=== PATIENT | male | born 1975 | race Caucasian/White ===

== ENCOUNTER 2022-06-03 14:11 | Observation (INO) ==
[2022-06-03 14:44] LABS: Basophils # (auto) 0.05 K/uL (0-0.2); Basophils % (auto) 0.4 %; Hematocrit (blood only) 47.1 % (40.1-51.0); Hemoglobin 16.6 g/dl (14.0-18.0); Immature Granulocytes # (auto) 0.04 K/uL (0.00-0.02); Immature Granulocytes % (auto) 0.3 %; Lymphocytes # (auto) 1.09 K/uL (1.2-3.4); Lymphocytes % (auto) 9.4 %; Mean Corpuscular Hemoglobin 29.6 pg (25.0-34.0); Mean Corpuscular Hgb Conc 35.2 g/dL (32.0-36.0); Mean Platelet Volume 9.7 fL (9.4-12.4); Monocytes # (auto) 0.49 K/uL (0.24-0.82); Monocytes % (auto) 4.2 %; Neutrophils # (auto) 9.96 K/uL (1.4-6.5); Neutrophils % (auto) 85.7 %; Platelet Count 263 K/uL (130-400); RDW Coefficient of Variation 12.5 % (11.5-14.5); RDW Standard Deviation 37.4 fL (36.4-46.3); Red Blood Count 5.61 M/uL (4.63-6.08); White Blood Count 11.63 K/ul (4.8-10.8)
[2022-06-03] MEDS ORDERED: LORazepam 1 MG/1 ML SYR IV STA (14:45)
[2022-06-03] MEDS ORDERED: ASPIRIN CHEW 324 MG PO STA (14:45)
--- NOTE | 2022-06-03 14:50 | XRay Report ---
TWO VIEW CHEST CLINICAL HISTORY: Atypical chest pain. Anxiety. FINDINGS: PA and lateral chest radiographs are obtained. No prior studies are available for compariso n at the time of dictation. The cardiomediastinal silhouette is unremarkable. The lungs and pleural spaces are clear. There is no pneumothorax. The bony thorax appears intact. IMPRESSION: No active disease in the chest. ACT 112: Negative or not required by law. Electronically signed by: Rubén Stein M.D. 06/03/2022 2:49 PM
--- NOTE | 2022-06-03 15:01 | Emergency Department Note ---
Impression & Plan Chest pain, Abnormal EKG ED Provider Note NAME: RENÉE FLORES AGE: 47 SEX: M : 1975 ARRIVES VIA: Walk-In INFORMANT: Patient, ED PROVIDER(S): Leonides Uriostegui DO CHIEF COMPLAINT: Chest pain HPI: The patient is a 47-year-old male who presented to the emergency department for an evaluation of discomfort in his chest. The patient states he has been having symptoms over the course the last few weeks but they have become worse over the last few days. He states he is getting pain in between his shoulder blades. He also notices discomfort in his chest. He becomes very anxious about this and thinks that he is suffering a heart attack. The patient currently does not have a family doctor. He went to [facility] initially. They wanted to do an EKG however the patient decided since they were going to send him to the emergency department he deferred all testing until he got here. He states he has no shortness of breath or leg swelling at this time but does complain of pain that he is experiencing between his shoulder blades and sometimes into his chest. He describes it as a pressure. He states symptoms are not worsen with anxiety. He has seen a chiropractor because he thought initially this could be musculoskeletal in nature but after his most recent trip to the chiropractor he did have some relief and the pain eventually did come back. The patient states that he is going to be traveling in the near future and was looking for medical clearance prior to leaving on a trip. ROS: See above HPI for pertinent positives & negatives. A total of 10 systems reviewed and were otherwise negative. PAST MEDICAL HISTORY: See Below PAST SURGICAL HISTORY: See Below FAMILY HISTORY: See Below SOCIAL HISTORY: See Below HOME MEDICATIONS: See Below ALLERGIES: See Below VITALS: See Below PHYSICAL EXAMINATION: GENERAL: The patient is awake and alert. He is somewhat anxious appearing. EYES: The conjunctivae are clear. The pupils are round and reactive. EARS, NOSE, MOUTH AND THROAT: The nose is without any evidence of any deformity. NECK: The neck is nontender and supple. RESPIRATORY: Normal respiratory effort is noted there is no evidence of wheezing rhonchi or rales CARDIOVASCULAR: Regular rate and rhythm noted there no murmurs rubs or gallops normal S1 normal S2. GASTROINTESTINAL: The abdomen is soft. Abdomen is nontender. BACK: No midline tenderness or or step-off noted range of motion in flexion extension as well as rotation no signs of muscle spasm noted MUSCULOSKELETAL/EXTREMITIES: There is no evidence of gross deformity full range of motion is noted in the hips and shoulders. SKIN: There is no obvious evidence of any rash. There are no petechiae, pallor or cyanosis noted. NEUROLOGIC: Patient is awake alert and oriented x3 MEDICAL DECISION MAKING: The patient is a 47-year-old male who presented to the emergency department for an evaluation of chest pain. The patient initially described pain was musculosk eletal in nature and seem to be in his back. He started noticing some discomfort in his chest and became very concerned that this was cardiac chest pain. The patient does not have a family doctor. He has not been seen previously for this pain. He denies having any difficulty breathing. The trent ent's initial presenting EKG in triage appeared to be consistent with inferior ischemia. The patient's cardiac biomarker was negative x2. I discussed the patient's laboratory and radiographic studies with him. Ultimately given his findings I [facility] have agreed to evaluate the patient in the emergency department for further management and disposition. Triage Nursing notes reviewed. Prior medical records reviewed Vital Signs: reviewed and remarkable for elevated blood pressure. Differential diagnosis: Cardiac ischemia, aortic dissection, pulmonary embolism, pneumothorax, pneumonia, pericarditis, myocarditis, esophageal rupture, GERD, cholecystitis, pancreatitis, musculoskeletal, as well as other pathologies. ER treatment provided: See below Diagnostics interpreted by me: ECG: EKG was obtained in the emergency department. My interpretation is sinus tachycardia [address] segment depressions noted in the inferior leads. Nonspecific ST segment abnormalities were also noted in the low lateral leads. No previous tracing was available. A second EKG was obtained in the emergency department. My interpretation is sinus rhythm at 90 bpm. There was no ectopy. Continued ST segment ab normalities were noted in the inferior and low lateral leads. There was no change compared to the earlier tracing. Cardiac Monitoring: An order was placed for continuous cardiac monitoring. The monitor shows a rate of 82 bpm with sinus rhythm. Laboratory studies: As stated above and show below. Imaging studies: See below Consultation(s): I discussed this case with Dr Ng who [facility] Past Med/Surg History Medical History Anxiety Social History Smoking Status: Former smoker Preferred Language: Pashto Feels Safe at Home: Yes Allergies Allergies Allergy/AdvReac Type Severity Reaction Status Date / Time pollen extracts Allergy Intermediate HAYFEVER Verified 06/03/22 15:35 SYMPTOMS amoxicillin Allergy Unknown HAPPENED Verified 06/03/22 15:35 A CHILD Home Meds Home Medications Medication Instructions Recorded Confirmed calcium carbonate 200 mg calcium 400 mg PO DIRECTED PRN 06/03/22 06/03/22 (500 mg) chewable tablet (Tums) INDIGESTION/HEARTBURN escitalopram oxalate 10 mg tablet 10 mg PO DAILY 06/03/22 06/03/22 ibuprofen 200 mg tablet 400 - 600 mg PO DIRECTED PRN 06/03/22 06/03/22 Pain Results & Data (ED) Vital Signs Vital Signs - 24 hr 06/03/22 14:15 06/03/22 15:08 06/03/22 15:08 Temperature 36.8 C Temperature Source Temporal Artery Scan Pulse Rate 101 H Pulse Rate [Apical] 94 H Pulse Rhythm [Apical] Pulse Strength [Apical] Respiratory Rate 18 14 Respiratory Effort / Characteristics Non-Labored Respiratory Depth Normal Respiratory Pattern Regular Blood Pressure 190/119 H Blood Pressure [Right Arm] 171/115 H Blood Pressure Mean 142 Blood Pressure Mean [Right Arm] 133 Blood Pressure Position [Right Arm] Pulse Oximetry 98 98 Oxygen Delivery Method Room Air Room Air Room Air Sepsis Recent Fever Within 48 Hours No Sepsis New/Unexplained Change in Mental Status No Sepsis Action Taken by Nursing No Action Required 06/03/22 16:41 06/03/22 17:29 Temperature Temperature Source Pulse Rate Pulse Rate [Apical] 97 H 92 H Pulse Rhythm [Apical] Regular Regular Pulse Strength [Apical] Normal Normal Respiratory Rate 16 16 Respiratory Effort / Characteristics Non-Labored Spontaneous Respiratory Depth Normal Respiratory Pattern Blood Pressure Blood Pressure [Right Arm] 161/108 H 161/107 H Blood Pressure Mean Blood Pressure Mean [Right Arm] 125 125 Blood Pressure Position [Right Arm] Lying Pulse Oximetry 98 99 Oxygen Delivery Method Room Air Room Air Sepsis Recent Fever Within 48 Hours Sepsis New/Unexplained Change in Mental Status Sepsis Action Taken by Snf Medications Current Medication List: was personally reviewed by me Laboratory Data Attestation: I reviewed the patient's lab results. Result diagrams: 06/03/22 14:30 06/03/22 14:30 Lab Results 06/03/22 06/03/22 06/03/22 Range/Units 14:30 14:30 14:30 WBC 11.63 H (4.8-10.8) K/ul RBC 5.61 (4.63-6.08) M/uL Hgb 16.6 (14.0-18.0) g/dl Hct 47.1 (40.1-51.0) % MCV 84.0 (80.0-100.0) fL MCH 29.6 (25.0-34.0) pg MCHC 35.2 (32.0-36.0) g/dL RDW Std Deviation 37.4 (36.4-46.3) fL RDW Coeff of Anastasiia 12.5 (11.5-14.5) % Plt Count 263 (130-400) K/uL MPV 9.7 (9.4-12.4) fL Immature Gran % (Auto) 0.3 % Neut % (Auto) 85.7 % Lymph % (Auto) 9.4 % [place] % (Auto) 4.2 % Eos % (Auto) 0.0 % Baso % (Auto) 0.4 % Neut # (Auto) 9.96 H (1.4-6.5) K/uL Lymph # (Auto) 1.09 L (1.2-3.4) K/uL [place] # (Auto) 0.49 (0.24-0.82) K/uL Eos # (Auto) 0.00 (0-0.50) K/uL Baso # (Auto) 0.05 (0-0.2) K/uL Immature Gran # (Auto) 0.04 H (0.00-0.02) K/uL PT 11.0 (9.0-12.0) Seconds INR 1.0 (0.9-1.1) APTT 27.0 (21.0-31.0) Seconds PTT Ratio 1.0 D-Dimer (0-500) ug/L FEU Sodium 136 (136-145) mmol/L Potassium 3.3 L (3.5-5.1) mmol/L Chloride 103 (98-107) mmol/L Carbon Dioxide 23 (21-32) mmol/L Anion Gap 10 (3-11) BUN 11 (6-23) mg/dl Creatinine 0.81 (0.6-1.4) mg/dl Est Cr Clr Drug Dosing 131.9 ml/min Est GFR ( Amer) 123.5 ml/min Est GFR (Non-Af Amer) 106.6 ml/min BUN/Creatinine Ratio 13.6 (10-20) Glucose 123 H (70-99(Fasting)) mg/dl Calcium 9.4 (8.5-10.1) mg/dl Total Bilirubin 0.8 (0.2-1.0) mg/dl AST 17 (13-39) U/L ALT 23 (7-52) U/L Alkaline Phosphatase 52 (34-104) U/L Troponin I High Sens 4.1 (0-20) pg/ml Total Protein 7.5 (6.0-8.3) gm/dl Albumin 4.7 (3.4-5.0) gm/dl Globulin 2.8 (2.5-4.0) gm/dl Albumin/Globulin Ratio 1.7 (0.9-2) Lipase 5 L (11-82) U/L 06/03/22 06/03/22 Range/Units 14:30 16:37 WBC (4.8-10.8) K/ul RBC (4.63-6.08) M/uL Hgb (14.0-18.0) g/dl Hct (40.1-51.0) % MCV (80.0-100.0) fL MCH (25.0-34.0) pg MCHC (32.0-36.0) g/dL RDW Std Deviation (36.4-46.3) fL RDW Coeff of Anastasiia (11.5-14.5) % Plt Count (130-400) K/uL MPV (9.4-12.4) fL Immature Gran % (Auto) % Neut % (Auto) % Lymph % (Auto) % [place] % (Auto) % Eos % (Auto) % Baso % (Auto) % Neut # (Auto) (1.4-6.5) K/uL Lymph # (Auto) (1.2-3.4) K/uL [place] # (Auto) (0.24-0.82) K/uL Eos # (Auto) (0-0.50) K/uL Baso # (Auto) (0-0.2) K/uL Immature Gran # (Auto) (0.00-0.02) K/uL PT (9.0-12.0) Seconds INR (0.9-1.1) APTT (21.0-31.0) Seconds PTT Ratio D-Dimer < 190 (0-500) ug/L FEU Sodium (136-145) mmol/L Potassium (3.5-5.1) mmol/L Chloride (98-107) mmol/L Carbon Dioxide (21-32) mmol/L Anion Gap (3-11) BUN (6-23) mg/dl Creatinine (0.6-1.4) mg/dl Est Cr Clr Drug Dosing ml/min Est GFR ( Amer) ml/min Est GFR (Non-Af Amer) ml/min BUN/Creatinine Ratio (10-20) Glucose (70-99(Fasting)) mg/dl Calcium (8.5-10.1) mg/dl Total Bilirubin (0.2-1.0) mg/dl AST (13-39) U/L ALT (7-52) U/L Alkaline Phosphatase (34-104) U/L Troponin I High Sens 3.7 (0-20) pg/ml Total Protein (6.0-8.3) gm/dl Albumin (3.4-5.0) gm/dl Globulin (2.5-4.0) gm/dl Albumin/Globulin Ratio (0.9-2) Lipase (11-82) U/L Administered Medications Discontinued Medications Aspirin (Aspirin Chew 324 Mg) 324 mg PO NOW STA Stop: 06/03/22 14:46 Last Admin: 06/03/22 15:10 Dose: 324 mg Documented By: QUENTIN Lorazepam (Lorazepam 2 Mg/2 Ml Syr) 1 mg IV NOW STA; Protocol Stop: 06/03/22 14:46 Last Admin: 06/03/22 15:10 Dose: 1 mg Documented By: QUENTIN Imaging Data Radiologist's Impression: Chest X-Ray 06/03/22 14:19 TWO VIEW CHEST CLINICAL HISTORY: Atypical chest pain. Anxiety. FINDINGS: PA and lateral chest radiographs are obtained. No prior studies are available for comparison at the time of dictation. The cardiomediastinal silhouette is unremarkable. The lungs and pleural spaces are clear. There is no pneumothorax. The bony thorax appears intact. IMPRESSION: No active disease in the chest. ACT 112: Negative or not required by law. Electronically signed by: Rubén Stein M.D. 06/03/2022 2:49 PM Discharge Plan Visit Data Chief Complaint: Chest Pain Stated Complaint: CHEST PAIN, SENT FROM [facility] Provider: Leonides Uriostegui Discharge Problem: Chest pain, Abnormal EKG Patient Disposition: Being Evaluated by Hospitalist Forms Stand Alone Forms: [facility] [employer] Prescriptions Prescriptions: No Action calcium carbonate [Tums] 200 mg calcium (500 mg) Tablet,Chewable 400 mg PO DIRECTED PRN (Reason: INDIGESTION/HEARTBURN) ibuprofen 200 mg Tablet 400 - 600 mg PO DIRECTED PRN (Reason: Pain) escitalopram oxalate 10 mg tablet 10 mg PO DAILY Rx Instructions: STARTED 06/02/22 Referrals Referrals: PCP,NO [Primary Care Provider] -
[2022-06-03 15:24] LABS: D Dimer < 190 ug/L FEU (0-500)
[2022-06-03 15:31] LABS: Troponin I High Sensitivity 4.1 pg/ml (0-20)
[2022-06-03 15:46] LABS: Albumin Globulin Ratio 1.7 (0.9-2); Albumin Level 4.7 gm/dl (3.4-5.0); BUN Creatinine Ratio 13.6 (10-20); Bilirubin,Total 0.8 mg/dl (0.2-1.0); Calcium 9.4 mg/dl (8.5-10.1); Creatinine Clr Calc Pharmacy 131.9 ml/min; Est GFR (African American) 123.5 ml/min; Est GFR (Non-African American) 106.6 ml/min; Globulin 2.8 gm/dl (2.5-4.0); Potassium 3.3 mmol/L (3.5-5.1); Total Protein 7.5 gm/dl (6.0-8.3)
[2022-06-03] MEDS ORDERED: POTASSIUM CHLORIDE CRTAB 20 MEQ TABCR PO STA (18:32)
--- NOTE | 2022-06-03 18:33 | History & Physical Report ---
Date of Service June 03, 2022 Assessment & Plan (1) Chest pain: Plan: 47 yo M with PMH anxiety presenting with chest pain. Pt has not had routine medical care over past few years. Acute chest pain -EKG on admission with normal sinus rhythm, ST depressions of inferolateral leads -Troponins negative x2 -Repeat troponin in AM -Suspect pt's chest tightness likely driven by anxiety, lower suspicion for ACS though will complete workup given EKG findings -Lipid profile pending, A1C pending -Echocardiogram pending -Exercise stress test ordered -Cardiology consulted for AM -Pt to establish care with [facility] as outpatient. Did express hope to be discharged by 12:00 PM on 06/04 so he can fly to his daughter's graduation. He is open to completing further workup such as stress test as outpatient if it cannot be done early in AM. Anxiety -Pt's symptoms precede his resumption of Lexapro -Continue Lexapro 10 mg daily -Ativan 1 mg PO Hs for sleep aid in context of pt's acute anxiety, Ativan 1 mg PO PRN for severe anxiety Sinus tachycardia -Likely secondary to acute anxiety -Telemetry monitoring Elevated BP -Likely secondary to acute anxiety -No increased chest pain or neurologic symptoms at present -Continue monitoring Hypokalemia -K 3.3 on admission -Repleted in ER -Trend BMP Leukocytosis -WBC 11.6 on admission -Afebrile, low suspicion for acute infection -Mild leukocytosis likely stress demargination -Trend CBC FENGI: Regular Code status: Full DVT ppx: Ambulation, low-risk Isolation: None Dispo: Medical/surgical with telemetry (2) Anxiety: History of Present Illness Chief Complaint: Chest pain Primary Care Provider: NO PCP 47 yo M with PMH anxiety presenting with chest pain. Pt has not had routine medical care over past few years. Pt states he has had worsening anxiety with intermittent chest tightness and severe anxiety/panic attacks over the past few weeks but this has acutely wo rsened over past few days. Does report significant life stressors that have been burgeoning and he feels as if he's on the verge of a severe panic attack. Does note some associated upper back pain between the shoulder blades in relation to this anxiety and had seen chiropractor/massage therapist 2 days prior- reports significant relief shortly after treatment but pain and anxiety resumed the next day. Pt states he has noticed some more chest tightness over past few days- moderate severity, slightly worse with deep inspiration, worse when anxiety is more severe, sharp, transient/self-limiting, occasionally reproducible with palpation. He did go to urgent care earlier today and was advised to come to ED. In ED, pt arrived with HR 90s, BP 160s-190s/100s. No pain on ER arrival. Received aspirin, Ativan 1 mg. CXR negative, EKG in sinus rhythm with some inferolateral ST depressions. WBC 11.6, K 3.3, glucose 123. Of note, pt had been on Lexapro 10 mg in the past for 6-7 years but was off medication for 1 year due to moving to [place]/not re-establishing with new physician. He did see a psychiatrist virtually and restarted Lexapro 10 mg 2 days prior. Pt is also flying to [place] tomorrow for his daughter's graduation. This is an important occasion for him and he would like to attend, which would require him to start traveling around 12:00 PM on 06/04. He does state he would like to establish with [facility] as outpatient and complete the rest of his workup as outpatient if all of it cannot be completed before 12. Allergies Allergy/AdvReac Type Severity Reaction Status Date / Time pollen extracts Allergy Intermediate HAYFEVER Verified 06/03/22 15:35 SYMPTOMS amoxicillin Allergy Unknown HAPPENED Verified 06/03/22 15:35 A CHILD Home Medications Medication Instructions Recorded Confirmed Type calcium carbonate 200 mg calcium 400 mg PO DIRECTED PRN 06/03/22 06/03/22 History (500 mg) chewable tablet (Tums) INDIGESTION/HEARTBURN escitalopram oxalate 10 mg tablet 10 mg PO DAILY 06/03/22 06/03/22 History ibuprofen 200 mg tablet 400 - 600 mg PO DIRECTED PRN 06/03/22 06/03/22 History Pain lorazepam 0.5 mg tablet (Ativan) 0.5 mg PO TID PRN anxiety #10 tabs 06/04/22 Rx Past Med/Surg History Medical History Anxiety Social History Smoking Status: Never smoker Hx Alcohol Use: Yes Alcohol type: beer Hx Substance Use: No Preferred Language: Pashto Beliefs That Will Affect Care: None Current Living Situation: Spouse and Family Current Living Situation Comment: lives at home with and son Feels Safe at Home: Yes Safety Concerns: Feels Safe At This Time Assistive Devices: None Review of Systems Review of Systems: Per HPI Physical Exam Physical Exam: General- anxious gentleman in no acute distress HEENT- Moist mucous membranes, anicteric sclerae, PERRLA, EOMI CV- RRR, normal S1 and S2 Resp- CTAB, unlabored respirations Abd- soft, nontender, nondistended MSK- normal bulk and tone of b/l UE and LE, no chest wall tenderness to palpation Neuro- AOx3, no focal motor or sensory deficits Skin- warm, dry, no rashes Psych- +anxious affect, no SI/HI, no AVH Results & Data Results & Data ([facility]) Vital Signs (Past 12 Hours) Vital Signs Temp Pulse Pulse Resp BP BP Pulse Ox 06/03/22 17:29 92 H 16 161/107 H 99 06/03/22 16:41 97 H 16 161/108 H 98 06/03/22 15:08 94 H 14 171/115 H 98 06/03/22 15:08 06/03/22 14:15 36.8 C 101 H 18 190/119 H 98 O2 Del Method 06/03/22 17:29 Room Air 06/03/22 16:41 Room Air 06/03/22 15:08 Room Air 06/03/22 15:08 Room Air 06/03/22 14:15 Room Air Supervising Physician Co-Signing Physician Notes During face to face encounter, I obtained a history of present illness and performed a physical examination. I reviewed above note and agree with it. D/W Dr. Ng and patient plan of care. Patient will be seen for chest pain, and will monitor trop, stress test in AM if trops remain negative. Resident Activity Tracking Resident Involvement: Resident Care Provided Care Provided: Adult Hospital Medicine (1) Chest pain Chest pain type: unspecified Qualified Code(s): R07.9 - Chest pain, unspecified
[2022-06-03] MEDS ORDERED: ACETAMINOPHEN 500 MG TAB PO STA (18:52)
[2022-06-03] MEDS ORDERED: IBUPROFEN 600 MG TAB PO STA (18:52)
[2022-06-03 19:58] LABS: Chol HDL Ratio 3.4 (0-5)
[2022-06-03] MEDS ORDERED: ACETAMINOPHEN 325 MG TAB PO PRN (21:24)
[2022-06-03] MEDS ORDERED: ONDANSETRON INJ 2 MG/ML 2 ML VIAL IV PRN (21:24)
[2022-06-03] MEDS ORDERED: LORazepam 1 MG TAB PO PRN (21:24)
[2022-06-03] MEDS ORDERED: IBUPROFEN 800 MG TAB PO PRN (21:24)
[2022-06-03] MEDS: LORazepam 1 MG TAB PO SCH (22:25)
--- NOTE | 2022-06-04 06:01 | Electrocardiogram Report ---
Test Reason : Blood Pressure : / mmHG Vent. Rate : 104 BPM Atrial Rate : 104 BPM P-R Int : 184 ms QRS Dur : 098 ms QT Int : 350 ms P-R-T Axes : 065 -01 001 degrees QTc Int : 460 ms Sinus tachycardia Otherwise normal ECG No previous ECGs available Confirmed by Justyn De Santiago ([id number]) on 06/04/2022 6:01:02 AM Referred By: Confirmed By:Justyn De Santiago
--- NOTE | 2022-06-04 06:40 | Hospitalist Progress Note ---
Date of Service June 04, 2022 Assessment & Plan (1) Chest pain: Plan: 47 yo M with H anxiety presenting with chest pain. Pt has not had routine medical care over past few years. Acute chest pain -EKG on admission with normal sinus rhythm, ST depressions of inferolateral leads -Troponins negative x2 -Repeat troponin in AM -Suspect pt's chest tightness likely driven by anxiety, lower suspicion for ACS though will complete workup given EKG findings -Lipid profile pending, A1C pending -Echocardiogram pending -Exercise stress test ordered -Cardiology consulted for AM -Pt to establish care with [facility] as outpatient. Did express hope to be discharged by 12:00 PM on 06/04 so he can fly to his daughter's graduation. He is open to completing further workup such as stress test as outpatient if it cannot be done early in AM. Anxiety -Pt's symptoms precede his resumption of Lexapro -Continue Lexapro 10 mg daily -Ativan 1 mg PO Hs for sleep aid in context of pt's acute anxiety, Ativan 1 mg PO PRN for severe anxiety Sinus tachycardia -Likely secondary to acute anxiety -Telemetry monitoring Elevated BP -Likely secondary to acute anxiety -No increased chest pain or neurologic symptoms at present -Continue monitoring Hypokalemia -K 3.3 on admission -Repleted in ER -Trend BMP Leukocytosis -WBC 11.6 on admission -Afebrile, low suspicion for acute infection -Mild leukocytosis likely stress demargination -Trend CBC FENGI: Regular Code status: Full DVT ppx: Ambulation, low-risk Isolation: None Dispo: Medical/surgical with telemetry (2) Anxiety: Admission and Anticipated Discharge Date Admission Date: June 03, 2022 Results & Data Results & Data ([facility]) Vital Signs (Past 12 Hours) Vital Signs Temp Pulse Pulse Pulse Resp BP BP 06/04/22 03:00 36.8 C 80 18 135/84 06/03/22 23:11 36.7 C 79 18 159/104 H 06/03/22 22:14 75 06/03/22 21:40 97 H 06/03/22 21:50 36.6 C 85 18 06/03/22 21:18 94 H 18 148/97 H 06/03/22 20:22 93 H 16 06/03/22 19:20 84 16 BP Pulse Ox O2 Del Method 06/04/22 03:00 96 Room Air 06/03/22 23:11 97 Room Air 06/03/22 22:14 06/03/22 21:40 06/03/22 21:50 169/108 H 98 Room Air 06/03/22 21:18 96 Room Air 06/03/22 20:22 155/107 H 96 06/03/22 19:20 97 Room Air (1) Chest pain Chest pain type: unspecified Qualified Code(s): R07.9 - Chest pain, unspecified
[2022-06-04] MEDS: LORazepam 1 MG TAB PO SCH (07:21)
[2022-06-04 07:27] LABS: Hematocrit (blood only) 43.9 % (40.1-51.0); Hemoglobin 15.1 g/dl (14.0-18.0); Mean Corpuscular Hemoglobin 28.9 pg (25.0-34.0); Mean Corpuscular Hgb Conc 34.4 g/dL (32.0-36.0); Mean Corpuscular Volume 84.1 fL (80.0-100.0); Mean Platelet Volume 9.4 fL (9.4-12.4); Platelet Count 219 K/uL (130-400); RDW Coefficient of Variation 12.6 % (11.5-14.5); RDW Standard Deviation 38.3 fL (36.4-46.3); Red Blood Count 5.22 M/uL (4.63-6.08); White Blood Count 7.44 K/ul (4.8-10.8)
[2022-06-04 07:56] LABS: BUN Creatinine Ratio 14.6 (10-20); Creatinine Clr Calc Pharmacy 127.1 ml/min; Est GFR (African American) 122.9 ml/min; Potassium 3.7 mmol/L (3.5-5.1)
[2022-06-04 07:58] LABS: Troponin I High Sensitivity 3.7 pg/ml (0-20)
[2022-06-04 08:28] LABS: Estimated Average Glucose 97 mg/dl
[2022-06-04] MEDS ORDERED: ESCITALOPRAM OXALATE 10 MG TAB PO SCH (09:00)
--- NOTE | 2022-06-04 10:43 | Discharge Summary ---
Date of Service June 04, 2022 Admission HPI Per Admitting Provider 47 yo M with H anxiety presenting with chest pain. Pt has not had routine medical care over past few years. Pt states he has had worsening anxiety with intermittent chest tightness and severe anxiety/panic attacks over the past few weeks but this has acutely worsened over past few days. Does report significant life stressors that have been burgeoning and he feels as if he's on the verge of a severe panic attack. Does note some associated upper back pain between the shoulder blades in relation to this anxiety and had seen chiropractor/massage therapist 2 days prior- reports significant relief shortly after treatment but pain and anxiety resumed the next day. Pt states he has noticed some more chest tightness over past few days- moderate severity, slightly worse with deep inspiration, worse when anxiety is more severe, sharp, transient/self-limiting, occasionally reproducible with palpation. He did go to urgent care earlier today and was advised to come to ED. In ED, pt arrived with HR 90s, BP 160s-190s/100s. No pain on ER arrival. Received aspirin, Ativan 1 mg. CXR negative, EKG in sinus rhythm with some inferolateral ST depressions. WBC 11.6, K 3.3, glucose 123. Of note, pt had been on Lexapro 10 mg in the past for 6-7 years but was off medication for 1 year due to moving to [place]/not re-establishing with new physician. He did see a psychiatrist virtually and restarted Lexapro 10 mg 2 days prior. Pt is also flying to [place] tomorrow for his daughter's graduation. This is an important occasion for him and he would like to attend, which would require him to start traveling around 12:00 PM on 06/04. He does state he would like to establish with [facility] as outpatient and complete the rest of his workup as outpatient if all of it cannot be completed before 12. Admission Exam Per Admitting Provider General- anxious gentleman in no acute distress HEENT- Moist mucous membranes, anicteric sclerae, PERRLA, EOMI CV- RRR, normal S1 and S2 Resp- CTAB, unlabored respirations Abd- soft, nontender, nondistended MSK- normal bulk and tone of b/l UE and LE, no chest wall tenderness to palpation Neuro- AOx3, no focal motor or sensory deficits Skin- warm, dry, no rashes Psych- +anxious affect, no SI/HI, no AVH Principal Diagnosis chest pain Discharge Exam Constitutional: well-appearing, no acute distress HEENT: NCAT, no conjunctival injection CV: regular rhythm, no murmur appreciated, extremities well-perfused, no LE edema Resp: CTABL, no wheezes/rales/rhonchi appreciated, no increased work of breathing GI: soft, nondistended, nontender, BS normoactive MSK: no gross deformities appreciated Skin: warm, dry, no rash appreciated Neuro: alert, oriented, no focal neurologic deficit appreciated Discharge Data Allergies Allergy/AdvReac Type Severity Reaction Status Date / Time pollen extracts Allergy Intermediate HAYFEVER Verified 06/03/22 15:35 SYMPTOMS amoxicillin Allergy Unknown HAPPENED Verified 06/03/22 15:35 A CHILD Consultations 06/03/22 18:14 ED Decision to Admit Stat Hospital Course (1) Chest pain: 47 yo M with PMH anxiety presenting with chest pain. Pt has not had routine medical care over past few years. Acute chest pain -EKG on admission with normal sinus rhythm, ST depressions of inferolateral leads -Troponins negative x3 -Suspect pt's chest tightness likely driven by anxiety, lower suspicion for ACS though will complete workup given EKG findings -Lipid profile, A1C, and exercise stress test were all normal. -Pt to establish care with [facility] as outpatient. Anxiety -Pt's symptoms precede his resumption of Lexapro -Continue Lexapro 10 mg daily -Ativan 1 mg PO Hs for sleep aid in context of pt's acute anxiety -Ativan 0.5 mg was given to the patient on discharge. 10 tab given -Patient has been under a lot of stress and anxiety lately due to his job. -Will f/u outpatient with me to discuss continue care of his anxiety. Sinus tachycardia -Likely secondary to acute anxiety Elevated BP -Likely secondary to acute anxiety -No increased chest pain or neurologic symptoms at present Hypokalemia -K 3.3 on admission -Repleted in ER Leukocytosis -WBC 11.6 on admission -Afebrile, low suspicion for acute infection -Mild leukocytosis likely stress demargination -Will f/u with [facility] as an outpatient to discuss treatment for anxiety given negative cardiac workup. (2) Anxiety: Total Time Total Time Spent Total Time Spent (In Minutes): <30 Discharge Plan Discharge Items Patient Disposition: Home - Self-Care Reason For Visit: CHEST PAIN R/O Discharge Diagnosis: Chest pain (Non-cardiac) Activity: Resume your previous activity Non-emergency contact: Primary Care Provider Call non-emergency contact if: your symptoms worsen, your pain is unusual for you and your temperature is above 101.5 Follow-up/Referrals: PCP,NO [Primary Care Provider] - Diet: Regular Addtl Attending Provider Instructions: You were admitted to the hospital for Chest pain. Cardiac workup was negative. You were treated with anti anxiety meds during your stay. Please follow up outpatient about continuing workup for your noncardiac chest pain. A discharge summary will be sent to your primary care physician to ensure continuity of care. Please bring this discharge summary with you to your next office appointment so that your provider can review it at that time. Follow-up appointments: * Make a follow-up appointment with your PCP within the next week. It is very important that you follow up with them shortly after discharge from the hospital. * Keep all your follow-up appointments as already scheduled. If you cannot make an appointment, notify your provider. Medications: Your medication list has been reviewed and reconciled upon discharge to ensure accuracy and continuity of care. An updated list of all your medications is included with your hospital discharge paperwork. Please review this list closely, and make note of any changes. * No new medications needed at this time. * If you have any issues filling these prescriptions, please call [phone] and ask to leave a message for Dr. Castle. * Take your medications as instructed; do not skip a dose of your medicines. Make sure all of your doctors know every medicine you are taking (including algh-qrv-kfuvtpe medicines, vitamins, and supplements). Call your primary care provider before taking any new medicines (including over- the-counter medicines, vitamins, and supplements), because some of these may interact with your current medications, or may make your symptoms worse. Tell your primary care provider if you cannot afford your medications. CONTACT YOUR PRIMARY CARE PROVIDER if you experience any of the following: * Worsening of symptoms * Fever, chills, or fatigue * Difficulty following your treatment plan, or difficulty taking medications CALL 911 OR GO TO THE EMERGENCY DEPARTMENT if you experience any of the following: * Sudden, severe abdominal pain or nausea/vomiting * Severe chest pain, or chest pain that radiates (moves) to your jaw or arm * Sudden, severe shortness of breath or difficulty breathing Thank you for allowing us to participate in your care. Pending Studies at Discharge: No Stand-Alone Forms: [facility], Sm[facility] C[facility] Medications and DC Order Prescriptions: New lorazepam [Ativan] 0.5 mg tablet 0.5 mg PO TID PRN (Reason: anxiety) Qty: 10 0RF Continued calcium carbonate [Tums] 200 mg calcium (500 mg) Tablet,Chewable 400 mg PO DIRECTED PRN (Reason: INDIGESTION/HEARTBURN) ibuprofen 200 mg Tablet 400 - 600 mg PO DIRECTED PRN (Reason: Pain) escitalopram oxalate 10 mg tablet 10 mg PO DAILY Rx Instructions: STARTED 06/02/22 Discharge Orders: Discharge Order (Routine); Ordered 06/04/22 Ordered By: Rubén Castle Admission Data Admit Date/Time: 06/03/22 18:51 Attending Provider: Baudilio Sandhu Admit Provider: Manjula Ng Primary Care Provider: PCP,NO Other Providers: Alexx Ricks Other Interventions: Discharge Summary Assessment (RN) Last Done: 06/04/22 10:37 Supervising Physician Co-Signing Physician Notes I personally examined the patient and verified all scott points of history and exam, discussed case, and agree with decision making with Dr Castle Feeling better. Stress negative. Suspect it was all anxiety. Really needs to get out of the hospital Vitals noted, in general he is awake and alert pleasant no distress. HEENT normocephalic atraumatic mucous membranes moist. Breathing unlabored no accessory muscle use good effort. Skin shows no rashes no pallor or icterus. Neuro without focal deficits. Chest paintroponins and stress negativeagree with patient is likely anxiety. Is establishing with resident physician for follow-up. We will follow-up with anxiety management, discussed basics. Given that some of the anxiety is situational, short/limited prescription of Ativan just to help with the situational anxiety of the current time and the current weekend. Discussed physical dependency and escalation cycles and how this would not be good long- term management. Discussed counseling. Stable for home Resident Activity Tracking Resident Involvement: Resident Care Provided Care Provided: Adult Hospital Medicine
--- NOTE | 2022-06-04 18:07 | XCELERA ---
[id number]
--- NOTE | 2022-06-04 19:30 | Billing Data ---
Date of Service June 04, 2022 Coding Level of Care Code 36330 OBS Care - Discharge
--- NOTE | 2022-06-05 22:11 | Electrocardiogram Report ---
Test Reason : Blood Pressure : / mmHG Vent. Rate : 098 BPM Atrial Rate : 098 BPM P-R Int : 192 ms QRS Dur : 100 ms QT Int : 356 ms P-R-T Axes : 045 -20 -04 degrees QTc Int : 454 ms Normal sinus rhythm Normal ECG When compared with ECG of 03-JUN-2022 14:15, No significant change was found Confirmed by Justyn De Santiago ([id number]) on 06/05/2022 10:10:43 PM Referred By: REFERRED SELF Confirmed By:Justyn De Santiago
--- NOTE | 2022-06-08 15:00 | Billing Data ---
Date of Service June 03, 2022 Coding Level of Care Code INT OBSERVATION CARE 70M LVL 3
== END 2022-06-04 11:04 | disposition home or self-care (01) ==
LOC: 2N 14:11 → ED 14:11 → SUATTDRO 18:51 → 2N 21:18